=== PATIENT | female | born 1935 | race Caucasian/White ===

== ENCOUNTER → 2018-07-25 | Day surgery (SDC) | payer MEDICARE ==
[2018-07-21 15:04] LABS: BASOPHILS # (AUTO) 0.1 (0.0-0.1); BASOPHILS % 0.7 % (0.0-1.0); EOSINOPHILS # (AUTO) 0.2 (0.0-0.4); EOSINOPHILS % 2.1 % (0.0-6.0); HEMATOCRIT 35.5 % (34.2-44.1); HEMOGLOBIN 11.9 g/dL (12.0-16.0); LYMPHOCYTES % 33.9 % (18.0-39.1); MEAN CORPUSCULAR HEMOGLOBIN 28.7 pg (28-32); MEAN CORPUSCULAR HGB CONC 33.5 g/dL (31-35); MEAN CORPUSCULAR VOLUME 85.5 fL (81-99); MONOCYTES # (AUTO) 0.9 (0.2-0.8); MONOCYTES % 9.6 % (4.4-11.3); NEUTROPHILS # (AUTO) 4.8 (2.1-6.9); NEUTROPHILS % 53.4 % (38.7-80.0); RED BLOOD COUNT 4.15 x10e6/uL (3.6-5.1); RED CELL DISTRIBUTION WIDTH 15.1 % (11.7-14.4)
[2018-07-21 15:08] LABS: PLATELET COUNT 99 x10e3/uL (140-360)
--- NOTE | 2018-07-21 15:25 | Diagnostic Imaging Report ---
EXAMINATION: CHEST 2 VIEWS INDICATION: Pre-admit COMPARISON: None FINDINGS: TUBES and LINES: None. LUNGS: Lungs are well inflated. Lungs are clear. There is no evidence of pneumonia or pulmonary edema. PLEURA: No pleural effusion or pneumothorax. HEART AND MEDIASTINUM: The cardiomediastinal silhouette is unremarkable. There are atherosclerotic calcifications within the aorta. BONES AND SOFT TISSUES: No acute osseous lesion. Soft tissues are unremarkable. UPPER ABDOMEN: No free air under the diaphragm. IMPRESSION: No acute radiographic abnormality. Signed by: Dr. Roxanna Kunz MD on 07/21/2018 3:21 PM
[2018-07-21 15:28] LABS: ANION GAP 16.4 mmol/L (8-16); CALCIUM 9.8 mg/dL (8.4-10.2); CREATININE, SERUM 1.33 mg/dL (0.57-1.11); POTASSIUM 3.4 mmol/L (3.5-5.1)
[~2018-07-25] MED LIST: BACITRACIN 50,000 UNIT VIAL ONE; BUPIVACAINE HCL 0.5% INJ 30 ML VIAL INJ ONE; BYSTOLIC10 MG PO; CYCLOBENZAPRINE5 MG; EPHEDRINE SULFATE INJ 50 MG/10 ML SYR ONE; FENTANYL CITRATE/PF 100MCG/2 ML INJ ONE; HYDRALAZINE HCL25 MG PO; HYDROCHLOROTHIA25 MG; INSULIN 70/30 SQ; LASIX40 MG PO; LOSARTAN POTAS100 MG PO; MELATONIN3 MG PO; MOBIC15 MG; MUPIROCIN22 GM TOP; NEOSTIGMINE 1 MG/ML 10ML VIAL ONE; POTASSIUM CHLO10 ME1 PO; SEVOFLURANE INHAL SOLN 250 ML PEN BTL ONE; TYLENOL; VITAMIN D1000 UNI1 PO; ZYRTEC10 M3
[2018-07-25 12:30] VITALS: BP 154/67
--- NOTE | 2018-07-25 16:10 | Operative Report ---
DATE OF PROCEDURE: July 25, 2018 SCRATCHER TENDER: None. PREOPERATIVE DIAGNOSES 1. Ulcer, chronic, left foot. 2. Rigid hammer toe, left second. POSTOPERATIVE DIAGNOSES 1. Ulcer, chronic, left foot. 2. Rigid hammer toe, left second. OPERATION PERFORMED: 1. Arthrodesis proximal interphalangeal joint, left second. 2. Tenotomy and capsulotomy, metatarsophalangeal joint, left second. PATHOLOGY: None. ANESTHESIA: General anesthetic. HEMOSTASIS: None. ESTIMATED BLOOD LOSS: Less than 10 mL. MATERIALS: Smart Toe from [employer]. Reference #: [id number], Lot# [id number]. PROCEDURE IN DETAIL: Under mild sedation, patient was brought to the operating room and placed on the operating table in the supine position. Following IV sedation, anesthesia was obtained with a general anesthetic. At this point, the foot was scrubbed, prepped, and draped in usual aseptic manner. It was then lowered to the table. Arthrodesis, proximal interphalangeal joint: Attention was then directed to the dorsal aspect of the left foot where a linear incision was made overlying the proximal interphalangeal joint. The incision was deepened via sharp and blunt dissection with care taken to retract and cauterize neurovascular structures as necessary. It was deepened down to the level of the tendon. The extensor tendon was then tenotomized. The retraction of the proximal interphalangeal joint was released. At this point, a Smart Toe 6 cm, no angle, was inserted into the arthrodesis of the joint. There was noted to be adequate alignment clinically with the use of intraoperative fluoroscopy. Attention was then directed to the metatarsophalangeal joint where a tenotomy and capsulotomy of the metatarsophalangeal joint was performed since the toe was contracted after the proximal interphalangeal joint, and was continued to have some contracture after the proximal interphalangeal joint arthrodesis. The flexor tendon was also released at the distal interphalangeal joint. At this point, there was noted to be adequate alignment clinically with intraoperative fluoroscopy. All incisions were then flushed with copious amounts of normal sterile saline solution. The incisions were then closed, closing with 4-0 Vicryl and 4-0 nylon. Clean dressing was applied consisting of Adaptic, 4 x 4's, Kerlix and an Elvin bandage. The patient tolerated the procedure and the anesthesia well without complications, and was transported to the recovery room with vital signs stable and vascular status intact to both feet. The patient will be discharged home when she meets criteria. They were given instructions to be partial weightbearing, to use a fracture boot or postop shoe and a walker, to follow up with me in the office and to call the office if any questions, concerns or any problems arise. Job#: [id number]
--- OUTSIDE RECORDS SUMMARY | 2018-08-01 12:16 | XMS REPORT | Summary of Care ---
Author Author [facility] Address Unknown Phone Unavailable Encounter HQ Darrin_navarro(FIN) [id number] Date(s): 10/20/16 - 11/18/16 [facility] Discharge Disposition: Home or Self Care Attending Physician: Marissa Cooper DO Vital Signs No data available for this section Problem List Condition Effective Dates Status Health Status Informant Bradycardia(Confirme Active d) Diabetes mellitus Active type 2(Confirmed) HTN - Active Hypertension(Confirm ed) IBS - Irritable Active bowel syndrome(Confirmed) Peripheral Active neuropathy(Confirmed ) Allergies, Adverse Reactions, Alerts Substance Reaction Severity Status Aldactone Active atenolol Rash Active bacitracin ophthalmic Active hydrochlorothiazide upper body rash Active iodine Active Ketek Active lisinopril Rash Active Lotemax 0.5% ophthalmic Active suspension Lyrica Active macrolide antibiotics Active metronidazole Itching Active Muscle pain Dry mouth Shortness of breath Tim-Dex ophthalmic Active solution Novocain Active penicillins Rash Active telithromycin Active Tequin Active tetracyclines Rash Active Swelling Ultram Active Zaditor 0.025% ophthalmic Active solution Medications No data available for this section Results No data available for this section Immunizations Given and Recorded Vaccine Date Status Refusal Reason influenza virus vaccine, inactivated 11/20/08 Given Procedures No data available for this section Social History Social History Type Response Smoking Status Never smoker; Exposure to Tobacco Smoke None; Cigarette Smoking Last 365 Days No; Reg Smoking Cessation Counseling No Assessment and Plan No data available for this section
--- OUTSIDE RECORDS SUMMARY | 2018-08-01 12:16 | XMS REPORT | Summary of Care ---
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 Start Date: 01/22/14 Stop Date: 01/22/14 Status: Completed Medications Administered During Your Visit No data available for this section Immunizations Vaccine Date Refusal Reason influenza virus vaccine, inactivated 11/20/08
--- OUTSIDE RECORDS SUMMARY | 2018-08-01 12:16 | XMS REPORT | Summary of Care ---
Author Author [facility] Organization [facility] Address Unknown Phone Unavailable Encounter HQ Darrin_navarro(FIN) [id number] Date(s): 02/27/16 - 02/27/16 [facility] [address] [place] [address]- Discharge Disposition: Home Attending Physician: Gibson Trinidad MD Referring Physician: Gibson Trinidad MD Vital Signs No data available for this [...] Refusal Reason influenza virus vaccine, inactivated 11/20/08 Procedures No data available for this section Social History No data available for this section Assessment and Plan No data available for this section
--- OUTSIDE RECORDS SUMMARY | 2018-08-01 12:16 | XMS REPORT | Summary of Care ---
Author Author [facility] Organization [facility] Address Unknown Phone Unavailable Encounter HQ Darrin_navarro(FIN) [id number] Date(s): 10/22/16 - 10/22/16 [facility] [address] [place] [address]- [phone] Discharge Disposition: Home or Self Care Attending Physician: aMrissa Cooper DO Referring Physician: Marissa Cooper DO Vital Signs No [...]
--- OUTSIDE RECORDS SUMMARY | 2018-08-01 12:16 | XMS REPORT | Summary of Care ---
Author Author [facility] Organization [facility] Address Unknown Phone Unavailable Encounter HQ Ernestina(TINA) [id number] Date(s): 10/23/16 - 10/23/16 [facility] [address] [place] [address]- [phone] Discharge Diagnosis: Chronic hypertension Discharge Disposition: Home or Self Care Attending Physician: Zackery Leon MD Vital Signs 1 2 3 Most recent to oldest [Reference Range]: 167.64 cm (10/23/16 4:04 PM) Height 98.1 DegF (10/23/16 8:15 PM) 98.1 DegF (10/23/16 4:04 PM) Temperature Oral [96.4-99.1 DegF] 166/66 mmHg *HI* (10/23/16 8:15 PM) 160/50 mmHg *HI* (10/23/16 6:53 PM) 183/66 mmHg *HI* (10/23/16 4:40 PM) Blood Pressure [90-140/60-90 mmHg] 14 BRMIN (10/23/16 8:15 PM) 18 BRMIN (10/23/16 4:39 PM) 75 BRMIN *HI* (10/23/16 4:04 PM) Respiratory Rate [14-20 BRMIN] 75 bpm (10/23/16 4:39 PM) 18 bpm *LOW* (10/23/16 4:04 PM) Peripheral Pulse Rate [60-100 bpm] 90.909 kg (10/23/16 4:04 PM) Weight 32.35 m2 (10/23/16 4:04 PM) Body Mass Index Problem List Condition Effective Dates Status Health [...] Active Zaditor 0.025% ophthalmic Active solution Medications Saline Flush 0.9% 10 mL, Route: IVP, Drug Form: INJ, Dosing Weight 90.909, kg, PRN, PRN Line Flush , Start date: 10/23/16 16:39:00 DIRECTOR EMERGENCY SERVICES, Duration: 30 day, Stop date: 11/22/16 16:38 :00 DIRECTOR EMERGENCY SERVICES Notes: (Same as: BD Posiflush) Start Date: 10/23/16 Stop Date: 10/23/16 Status: Discontinued Results ELECTROLYTES Most recent to 1 oldest [Reference Range]: Sodium Lvl [135-145 133 mEq/L mEq/L] *LOW* (10/23/16 4:57 PM) Potassium Lvl 3.8 mEq/L [3.5-5.1 mEq/L] (10/23/16 4:57 PM) Chloride Lvl [95-109 94 mEq/L mEq/L] *LOW* (10/23/16 4:57 PM) CO2 [24-32 mEq/L] 31 mEq/L (10/23/16 4:57 PM) AGAP [10.0-20.0 11.8 mEq/L mEq/L] (10/23/16 4:57 PM) CHEM PANEL Most recent to 1 oldest [Reference Range]: Creatinine Lvl 1.20 mg/dL [0.50-1.40 mg/dL] (10/23/16 4:57 PM) eGFR 43 mL/min/1.73m2 1 *NA* (10/23/16 4:57 PM) BUN [7-22 mg/dL] 20 mg/dL (10/23/16 4:57 PM) B/C Ratio [6-25] 17 (10/23/16 4:57 PM) Glucose Lvl [70-99 271 mg/dL mg/dL] *HI* (10/23/16 4:57 PM) Total Protein 7.1 g/dL [6.4-8.4 g/dL] (10/23/16 4:57 PM) Albumin Lvl [3.5-5.0 3.2 g/dL g/dL] *LOW* (10/23/16 4:57 PM) Globulin [2.7-4.2 3.9 g/dL g/dL] (10/23/16 4:57 PM) A/G Ratio [0.7-1.6] 0.8 (10/23/16 4:57 PM) Calcium Lvl 8.5 mg/dL [8.5-10.5 mg/dL] (10/23/16 4:57 PM) ALT [0-65 unit/L] 34 unit/L (10/23/16 4:57 PM) AST [0-37 unit/L] 35 unit/L (10/23/16 4:57 PM) Alk Phos [39-136 126 unit/L unit/L] (10/23/16 4:57 PM) Bili Total [0.2-1.3 0.7 mg/dL mg/dL] (10/23/16 4:57 PM) 1Result Comment: The eGFR is calculated using the CKD-EPI formula. In most young, healthy individuals the eGFR will be >90 mL/min/1.73m2. The eGFR declines with age. An eGFR of 60-89 may be normal in some populations, particularly the elderly, for whom the CKD-EPI formula has not been extensively validated. Use of the eGFR is not recommended in the following populations: Individuals with unstable creatinine concentrations, including patients and those with serious co-morbid conditions. Patients with extremes in muscle mass or diet. The data above are obtained from the National Kidney Disease Education Program ( NKDEP) which additionally recommends that when the eGFR is used in patients with extremes of body mass index for purposes of drug dosing, the eGFR should be mul tiplied by the estimated BMI. CARDIAC ENZYMES Most recent to 1 oldest [Reference Range]: Total CK [12-191 131 unit/L unit/L] (10/23/16 4:57 PM) CK MB [0.5-3.6 2.6 ng/mL ng/mL] (10/23/16 4:57 PM) CK MB Index 2.0 [0.0-2.5] (10/23/16 4:57 PM) Troponin-I <0.02 ng/mL [0.00-0.40 ng/mL] (10/23/16 4:57 PM) URINE AND STOOL Most recent to 1 oldest [Reference Range]: UA Turbidity [Clear] Clear (10/23/16 4:57 PM) UA Color Ltyellow *NA* (10/23/16 4:57 PM) UA pH [5.0-8.0] 7.0 (10/23/16 4:57 PM) UA Spec Grav 1.008 [<=1.030] (10/23/16 4:57 PM) UA Glucose [Negative 500 mg/dL mg/dL] *ABN* (10/23/16 4:57 PM) UA Blood [Negative] Negative (10/23/16 4:57 PM) UA Ketones [Negative Negative mg/dL mg/dL] *NA* (10/23/16 4:57 PM) UA Protein [Negative Negative mg/dL mg/dL] (10/23/16 4:57 PM) UA Urobilinogen <=1.0 mg/dL [0.1-1.0 mg/dL] *NA* (10/23/16 4:57 PM) UA Bili [Negative] Negative *NA* (10/23/16 4:57 PM) UA Leuk Est Trace [Negative] *ABN* (10/23/16 4:57 PM) UA Nitrite Negative [Negative] (10/23/16 4:57 PM) UA WBC [0-5 /HPF] 6 /HPF *HI* (10/23/16 4:57 PM) UA RBC [0-2 /HPF] <1 /HPF (10/23/16 4:57 PM) UA Bacteria [None Few /HPF Seen /HPF] *NA* (10/23/16 4:57 PM) UA Sq Epi [Few /LPF] Occasional /LPF *NA* (10/23/16 4:57 PM) HEMATOLOGY Most recent to 1 oldest [Reference Range]: WBC [3.7-10.4 K/CMM] 4.6 K/CMM (10/23/16 4:57 PM) RBC [4.20-5.40 3.83 M/CMM M/CMM] *LOW* (10/23/16 4:57 PM) Hgb [12.0-16.0 g/dL] 11.4 g/dL *LOW* (10/23/16 4:57 PM) Hct [36.0-48.0 %] 33.1 % *LOW* (10/23/16 4:57 PM) MCV [80.0-98.0 fL] 86.2 fL (10/23/16 4:57 PM) MCH [27.0-31.0 pg] 29.6 pg (10/23/16 4:57 PM) MCHC [32.0-36.0 34.4 g/dL g/dL] (10/23/16 4:57 PM) RDW [11.5-14.5 %] 15.1 % *HI* (10/23/16 4:57 PM) Platelet [133-450 97 K/CMM K/CMM] *LOW* (10/23/16 4:57 PM) MPV [7.4-10.4 fL] 7.8 fL (10/23/16 4:57 PM) Segs [45.0-75.0 %] 53.4 % (10/23/16 4:57 PM) Lymphocytes 31.2 % [20.0-40.0 %] (10/23/16 4:57 PM) Monocytes [2.0-12.0 9.9 % %] (10/23/16 4:57 PM) Eosinophils [0.0-4.0 4.3 % %] *HI* (10/23/16 4:57 PM) Basophils [0.0-1.0 1.2 % %] *HI* (10/23/16 4:57 PM) Segs-Bands # 2.5 K/CMM [1.5-8.1 K/CMM] (10/23/16 4:57 PM) Lymphocytes # 1.4 K/CMM [1.0-5.5 K/CMM] (10/23/16 4:57 PM) Monocytes # [0.0-0.8 0.5 K/CMM K/CMM] (10/23/16 4:57 PM) Eosinophils # 0.2 K/CMM [0.0-0.5 K/CMM] (10/23/16 4:57 PM) Basophils # [0.0-0.2 0.1 K/CMM K/CMM] (10/23/16 4:57 PM) PT [12.0-14.7 14.3 seconds seconds] (10/23/16 4:57 PM) INR [0.85-1.17] 1.09 (10/23/16 4:57 PM) PTT [22.9-35.8 36.8 seconds seconds] *HI* (10/23/16 4:57 PM) Immunizations Given and Recorded Vaccine Date Status [...]
--- OUTSIDE RECORDS SUMMARY | 2018-08-01 12:16 | XMS REPORT | Continuity of Care Document ---
Author Author [facility] Interface Address Unknown Phone Unavailable Problems Problem Status Onset Date Classification Date Reported Comments Source DX: N18.3=CHRONIC KIDNEY DISEASE, STAGE Active 02/02/2018 [facility] Discharge Diagnosis: Chronic hypertension 10/23/2016 10/26/2016 [facility] HIGH BP Active 10/23/2016 [facility] RT HIP PAIN Active 10/17/2016 [facility] M48.06 SPINAL STENOSIS, LUMBAR REGION M2 Active 10/08/2016 [facility] M79.7 / M48.06/ M25.551 Active 09/08/2016 [facility] SCREENING MAMMO Active 02/17/2016 [facility] 729.2=ACUTE NEURITIS/389.10=CONGENITAL S Active 01/11/2014 [facility] Bradycardia Active Problem 02/06/2018 [facility] Diabetes mellitus type 2 Active Problem 02/06/2018 [facility] HTN - Hypertension Active Problem 02/06/2018 [facility] IBS - Irritable bowel syndrome Active Problem 02/06/2018 [facility] Peripheral neuropathy Active Problem 02/06/2018 [facility] NEURALGIA/NEURITIS NOS Active [facility] SENSORNEUR HEAR LOSS NOS Active [facility] SENSONEUR HEAR LOSS ASYM Active [facility] OTALGIA NOS Active [facility] ENCNTR SCREEN MAMMOGRAM FOR MALIGNANT NE Active [facility] XRAYS Active [facility] FIBROMYALGIA Active [facility] SPINAL STENOSIS, LUMBAR REGION Active [facility] OBESITY, UNSPECIFIED Active [facility] PAIN IN RIGHT HIP Active [facility] DISORDER OF BONE, UNSPECIFIED Active [facility] CHRONIC KIDNEY DISEASE, STAGE 3 (MODERAT Active [facility] Medications Medication Details Route Status Patient Instructions Ordering Provider Order Date Source Saline Flush 0.9% 10 mL, Route: IVP, Drug Form: INJ, Dosing Weight 90.909, kg, PRN, PRN Line Flush, Start date: 10/23/16 16:39:00 [employer] PROFESSOR, Duration: 30 day, Stop date: 11/22/16 16:38:00 CSTNotes: (Same as: BD Posiflush) Inactive 10/23/2016 [facility] Omniscan 2,296 mg, 8 mL, Route: IV, Drug form: INJ, ONCE, Start date: 01/22/14 9:57:00, Stop date: 01/22/14 9:57:00Notes: (Same as: Omniscan). Inactive 01/22/2014 [facility] Allergies, Adverse Reactions, Alerts Substance Category Reaction Severity Reaction type Status Date Reported Comments Source Aldactone Assertion Drug allergy Active [facility] atenolol Assertion Rash Drug allergy Active [facility] bacitracin ophthalmic Assertion Drug allergy Active [facility] hydrochlorothiazide Assertion upper body rash Drug allergy Active [facility] iodine Assertion Drug allergy Active [facility] Ketek Assertion Drug allergy Active [facility] lisinopril Assertion Rash Drug allergy Active [facility] Lotemax 0.5% ophthalmic suspension Assertion Drug allergy Active [facility] Lyrica Assertion Drug allergy Active [facility] macrolide antibiotics Assertion Drug allergy Active [facility] metronidazole Assertion Shortness of breath, Dry mouth, Muscle pain, Itching Drug allergy Active [facility] Tim-Dex ophthalmic solution Assertion Drug allergy Active [facility] Novocain Assertion Drug allergy Active [facility] penicillins Assertion Rash Drug allergy Active [facility] telithromycin Assertion Drug allergy Active [facility] Tequin Assertion Drug allergy Active [facility] tetracyclines Assertion Swelling, Rash Drug allergy Active [facility] Ultram Assertion Drug allergy Active [facility] Zaditor 0.025% ophthalmic solution Assertion Drug allergy Active [facility] Immunizations Immunization Date Given Site Status Last Updated Comments Source influenza virus vaccine, inactivated 11/20/2008 Right arm completed [facility] [place] Results Order Name Results Value Reference Range Date Interpretation Comments Source Bladder US Bladder US Patient Name: NARENDRA ROBB : 1935; Age: 82 years Female MR: [id number] Study: Bladder US 02/03/2018 10:25 AM CDT Clinical Indication: chronic kidney disease. pre and post void residual - chronic kidney disease. COMPARISON: None FINDINGS: The bladder lumen is normal. The prevoid bladder volume is 195 cc. The post void bladder volume is 4 cc. IMPRESSION: Normal bladder ultrasound with normal pre and post void residuals. SL: [id number] 02/03/2018 - - Read by: Kp Ortez MD Dictated Date/time: 02/03/18 14:49 Electronically Signed by: Kp Ortez MD 02/03/18 14:49 FINAL REPORT [facility] Retroperitoneal Complete US Retroperitoneal Complete US Retroperitoneal Complete US 82 years /o Female Clinical Indication: chronic kidney disease - chronic kidney disease; Comparison: 04/29/2010 liver ultrasound TECHNIQUE: Multiple longitudinal and transverse real time sonographic images of the kidneys and urinary bladder are obtained. FINDINGS: KIDNEY: The right kidney measures 9.4 x 5.3 x 5.0 cm. The left kidney measures 10.1 x 4.3 x 4.5 cm. The kidneys are normal in size, shape, contour, and position. 2 small simple cysts arise in the upper pole of the left kidney measuring 1.0 and 1.6 cm in diameter. The renal parenchymal echogenicity is within normal limits. There is no hydronephrosis, nephrolithiasis, or abnormal perinephric collections. BLADDER: Scanning through the pelvis reveals the bladder to be partially distended with anechoic urine. AORTA, ILIAC ARTERIES AND IVC: Distal aorta and common iliac vessels not well seen on this exam due to overlying bowel gas. IVC patent. Proximal aorta within normal limits. ASCITES: No ascites noted. IMPRESSION: 1. Small cysts in the upper pole on the left kidney appear to be simple cysts of doubtful clinical significance. 2. Otherwise negative retroperitoneal ultrasound. SL: [id number] 02/03/2018 - - Read by: Bernardo Olivares MD Dictated Date/time: 02/03/18 14:48 Electronically Signed by: Bernardo Olivares MD 02/03/18 14:50 FINAL REPORT [facility] CARDIAC ENZYMES CK MB Index 2.0 0.0 - 2.5 10/23/2016 [facility] CARDIAC ENZYMES Troponin-I null 0.00 - 0.40 10/23/2016 [facility] CARDIAC ENZYMES CK MB 2.6 ng/mL 0.5 - 3.6 10/23/2016 [facility] CARDIAC ENZYMES Total CK 131 unit/L 12 - 191 10/23/2016 [facility] CHEM PANEL eGFR 43 mL/min/1.73m2 10/23/2016 Result Comment: The eGFR is calculated using the [...] from the National Kidney Disease Education Program (NKDEP) which additionally recommends that when the eGFR is used in patients with extremes of body mass index for purposes of drug dosing, the eGFR should be multiplied by the estimated BMI. [facility] CHEM PANEL Alk Phos 126 unit/L 39 - 136 10/23/2016 [facility]M PANEL AGAP 11.8 meq/L 10.0 - 20.0 10/23/2016 [facility]M PANEL Bili Total 0.7 mg/dL 0.2 - 1.3 10/23/2016 [facility] CHEM PANEL Albumin Lvl 3.2 g/dL 3.5 - 5.0 10/23/2016 [facility] CHEM PANEL ALT 34 unit/L 0 - 65 10/23/2016 [facility]M PANEL AST 35 unit/L 0 - 37 10/23/2016 [facility]M PANEL CO2 31 meq/L 24 - 32 10/23/2016 [facility]M PANEL Calcium Lvl 8.5 mg/dL 8.5 - 10.5 10/23/2016 [facility] PAN[facility] Total Protein 7.1 g/dL 6.4 - 8.4 10/23/2016 [facility] PAN[facility] Potassium Lvl 3.8 meq/L 3.5 - 5.1 10/23/2016 [facility] PAN[facility] Chloride Lvl 94 meq/L 95 - 109 10/23/2016 [facility] A/G Ratio 0.8 0.7 - 1.6 10/23/2016 [facility] B/C Ratio 17 6 - 25 10/23/2016 [facility] Globulin 3.9 g/dL 2.7 - 4.2 10/23/2016 [facility] PAN[facility] BUN 20 mg/dL 7 - 22 10/23/2016 [facility] PAN[facility] Creatinine Lvl 1.20 mg/dL 0.50 - 1.40 10/23/2016 [facility] PAN[facility] Glucose Lvl 271 mg/dL 70 - 99 10/23/2016 [facility] PAN[facility] Sodium Lvl 133 meq/L 135 - 145 10/23/2016 [facility] Monocytes 9.9 % 2.0 - 12.0 10/23/2016 [facility] HEMATOLOGY Segs 53.4 % 45.0 - 75.0 10/23/2016 [facility] HEMATOLOGY Lymphocytes 31.2 % 20.0 - 40.0 10/23/2016 [facility] HEMATOLOGY Basophils # 0.1 K/CMM 0.0 - 0.2 10/23/2016 [facility] HEMATOLOGY Monocytes # 0.5 K/CMM 0.0 - 0.8 10/23/2016 [facility] HEMATOLOGY Eosinophils # 0.2 K/CMM 0.0 - 0.5 10/23/2016 [facility] HEMATOLOGY Segs-Bands # 2.5 K/CMM 1.5 - 8.1 10/23/2016 [facility] Lymphocytes # 1.4 K/CMM 1.0 - 5.5 10/23/2016 [facility] Eosinophils 4.3 % 0.0 - 4.0 10/23/2016 [facility] Basophils 1.2 % 0.0 - 1.0 10/23/2016 [facility] PTT 36.8 s 22.9 - 35.8 10/23/2016 [facility] INR 1.09 0.85 - 1.17 10/23/2016 [facility] PT 14.3 s 12.0 - 14.7 10/23/2016 [facility] Platelet 97 K/CMM 133 - 450 10/23/2016 [facility] MPV 7.8 fL 7.4 - 10.4 10/23/2016 [facility] MCHC 34.4 g/dL 32.0 - 36.0 10/23/2016 [facility] RDW 15.1 % 11.5 - 14.5 10/23/2016 [facility] MCH 29.6 pg 27.0 - 31.0 10/23/2016 [facility] MCV 86.2 fL 80.0 - 98.0 10/23/2016 [facility] Hgb 11.4 g/dL 12.0 - 16.0 10/23/2016 [facility] Hct 33.1 % 36.0 - 48.0 10/23/2016 [facility] WBC 4.6 K/CMM 3.7 - 10.4 10/23/2016 [facility] RBC 3.83 M/CMM 4.20 - 5.40 10/23/2016 [facility] URINE AND STOOL UA Urobilinogen <=1.0 mg/dL 0.1 - 1.0 10/23/2016 [facility] URINE AND STOOL UA Bacteria Few /HPF None Seen /HPF 10/23/2016 [facility] URINE AND STOOL UA WBC 6 /HPF 0 - 5 10/23/2016 [facility] URINE AND STOOL UA Sq Epi Occasional /LPF Few /LPF 10/23/2016 [facility] URINE AND STOOL UA RBC null 0 - 2 10/23/2016 [facility] URINE AND STOOL UA Color Ltyellow 10/23/2016 [facility] URINE AND STOOL UA Leuk Est Trace *ABN* (10/23/16 4:57 PM) Negative 10/23/2016 [facility] URINE AND STOOL UA Blood Negative (10/23/16 4:57 PM) Negative 10/23/2016 [facility] URINE AND STOOL UA Bili Negative *NA* (10/23/16 4:57 PM) Negative 10/23/2016 [facility] URINE AND STOOL UA Nitrite Negative (10/23/16 4:57 PM) Negative 10/23/2016 [facility] URINE AND STOOL UA Ketones Negative mg/dL Negative mg/dL 10/23/2016 [facility] URINE AND STOOL UA Glucose 500 mg/dL Negative mg/dL 10/23/2016 [facility] URINE AND STOOL UA Protein Negative mg/dL Negative mg/dL 10/23/2016 [facility] URINE AND STOOL UA pH 7.0 5.0 - 8.0 10/23/2016 [facility] URINE AND STOOL UA Spec Grav 1.008 <=1.030 10/23/2016 [facility] URINE AND STOOL UA Turbidity Clear (10/23/16 4:57 PM) Clear 10/23/2016 [facility] Chest 1view DX Chest 1view DX Study: Frontal chest x-ray compared to 10/01/2013 History: Chest pain Comments: The trachea is midline. The cardiomediastinal silhouette is normal in size. No pneumonia. No pleural effusions or pneumothorax. Impression: No acute cardiopulmonary disease. 10/23/2016 - - Read by: Kandi Smalls MD Dictated Date/time: 10/23/16 18:16 Electronically Signed by: Kandi Smalls MD 10/23/16 18:18 FINAL REPORT [facility] Brain wo contrast CT Brain wo contrast CT Addendum: Images reviewed. Agree. Study: CT head without contrast. History: Weakness Comments: CT head was obtained from the vertex to the skull base utilizing multiple axial images without intravenous contrast. Total exam DLP is 981 mgy-cm. No intracranial hemorrhage, mass effect or midline shift. Normal duenas-white matter differentiation. Intracranial ventricles and subarachnoid spaces are within normal limits. No depressed skull bone fractures. Visualized paranasal sinuses show no fluid levels to suggest acute sinusitis. Impression: No intracranial hemorrhage, mass effect or midline shift. 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 COMPARISON: None FINDINGS: The axial lumbar bone mineral density is 107% of the expected age matched bone mass with a T-score 0.7. Axial lumbar average BMD is 1.13 g/cm2. The left femoral neck bone mineral density is 98% of the expected age matched bone mass with a T-score of -0.2. Left femoral neck BMD is 0.83 g/cm2. The total femoral BMD is 1.22 g/cm2. IMPRESSION: 1. Normal bone mineral density of the lumbar spine. 2. Normal bone mineral density of the left femoral neck. The World Health Organization has established that OSTEOPOROSIS occurs at -2.5 or more standard deviations (SD) below peak bone mass. OSTEOPENIA (low bone mass) occurs at -1.0 standard deviations to -2.5 standard deviations below peak bone mass. 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 Minimal degenerative changes of the right hip. No gross soft tissue abnormalities. IMPRESSION: No acute abnormalities. SL: [id number] 09/08/2016 - - Read by: Rose Calloway MD Dictated Date/time: 09/08/16 10:40 Electronically Signed by: Rose Calloway MD 09/08/16 10:41 FINAL REPORT [facility] Digital Mammo Screening Angelo MA Digital Mammo Screening Angelo MA - DIGITAL MAMMO SCREENING ANGELO MA BILATERAL DIGITAL SCREENING MAMMOGRAM WITH CAD: 02/27/2016 CLINICAL: Routine. Current study was evaluated with a Computer Aided Detection (CAD) system. Comparison is made to exams dated: 09/21/2012 mammogram, 08/02/2011 mammogram, 09/04/2009 mammogram and 07/11/2009 mammogram - [facility]. The tissue of both breasts is almost entirely fat. There are benign vascular calcifications and calcifications in both breasts. There also are benign densities in both breasts. No significant masses, calcifications, or other findings are seen in either breast. There has been no significant interval change. IMPRESSION: BENIGN There is no mammographic evidence of malignancy. A 1 year screening mammogram is recommended. David monzon/penrad:03/01/2016 10:46:39 Practicing Urologist: Kika Kearns, [facility] This exam was dictated and interpreted by [id number] for [facility]. letter sent: Normal exam Mammogram BI-RADS: 2 Benign 02/27/2016 - - Read by: David Vela MD Dictated Date/time: 03/01/16 10:46 Electronically Signed by: David Vela MD 03/01/16 10:46 FINAL REPORT [facility] Brain/IAC's w/wo contrast MRI Brain/IAC's w/wo contrast MRI MRI BRAIN AND IAC WITH AND WITHOUT CONTRAST INDICATION: Sensorineural hearing loss COMPARISON: CT brain 02/09/2012 DISCUSSION: Image detail is degraded by motion artifacts. BRAIN: There are age-appropriate generalized involutional changes of the brain. The white matter is normal in signal. There is no evidence of acute vascular insults, space occupying lesions, hemorrhage, hydrocephalus, midline shift, or extra-axial collections. No cortical-based, suprasellar, craniocervical, enhancing, or bone marrow abnormalities are seen. IACs: There are no abnormalities in the internal auditory canals, cerebellopontine angle cisterns, or in the brainstem. The labyrinthine structures are grossly unremarkable. IMPRESSION: 1. No intracranial abnormalities are visualized. 2. No abnormalities of the internal auditory canals are identified. SL: 16 01/22/2014 - - Read by: Anders Oliveros Dictated Date/time: 01/22/14 16:23 Electronically Signed by: Anders Oliveros MD 01/22/14 16:30 FINAL REPORT [facility] Vital Signs Vital Sign Value Date Comments Source Systolic (mm Hg) 166 10/24/2016 [facility] Diastolic (mm Hg) 66 10/24/2016 [facility] Respitory Rate 14 10/24/2016 [facility] Temperature Oral (F) 98.1 F 10/24/2016 [facility] Systolic (mm Hg) 160 10/24/2016 [facility] Diastolic (mm Hg) 50 10/24/2016 [facility] Systolic (mm Hg) 183 10/23/2016 [facility] Diastolic (mm Hg) 66 10/23/2016 [facility] Heart Rate 75 10/23/2016 [facility] Respitory Rate 18 10/23/2016 [facility] Weight 90.909 10/23/2016 [facility] BMI Calculated 32.35 10/23/2016 [facility] Height 167.64 cm 10/23/2016 [facility] Temperature Oral (F) 98.1 F 10/23/2016 [facility] Heart Rate 18 10/23/2016 [facility] Respitory Rate 75 10/23/2016 [facility] Height 167.64 cm 01/22/2014 [facility] Weight 90.909 01/22/2014 [facility] Encounters Location Location Details Encounter Type Encounter Number Reason For Visit Attending Provider ADM Date DC Date Status Source [facility] Outpatient [id number] Denise Salamanca 01/22/2014 01/23/2014 [facility] Outpatient [id number] Gibson Todden 02/27/2016 02/28/2016 [facility] Outpatient [id number] Marissa Cooper 09/08/2016 09/09/2016 [facility] OP Therapy Patients [id number] Marissa Cooper 10/20/2016 11/19/2016 [facility] Outpatient [id number] Marissa Cooper 10/22/2016 10/23/2016 [facility] Emergency [id number] Zackery Leon 10/23/2016 10/24/2016 [facility] Outpatient [id number] Taurus Kay 02/03/2018 02/04/2018 [facility] Procedures Procedure Code Date Perfomer Comments Source
--- OUTSIDE RECORDS SUMMARY | 2018-08-01 12:16 | XMS REPORT | Summary of Care ---
Author Author [facility] Organization [facility] Address Unknown Phone Unavailable Encounter MARTHA Do(TINA) [id number] Date(s): 02/03/18 - 02/03/18 [facility] [address] [place] [address]- Discharge Disposition: Home or Self Care Attending Physician: Taurus aKy MD Referring Physician: Taurus Kay MD Vital Signs No data available for this section Problem List Condition Effective Dates Status Health Status Informant Bradycardia(Confirme Active d) Diabetes mellitus Active type 2(Confirmed) HTN - Active Hypertension(Confirm ed) IBS - Irritable Active bowel syndrome(Confirmed) Peripheral Active neuropathy(Confirmed ) Allergies, Adverse Reactions, Alerts Substance Reaction Severity Status penicillins Rash Active macrolide antibiotics Active tetracyclines Swelling Active Rash atenolol Rash Active metronidazole Shortness of breath Active Dry mouth Muscle pain Itching hydrochlorothiazide upper body rash Active lisinopril Rash Active bacitracin ophthalmic Active Aldactone Active Novocain Active Ultram Active Tequin Active Lotemax 0.5% ophthalmic Active suspension Tim-Dex ophthalmic Active solution Zaditor 0.025% ophthalmic Active solution Ketek Active telithromycin Active Lyrica Active iodine Active Medications No data available for this section Results No data available for this section Immunizations Given and Recorded Vaccine Date Status Refusal Reason influenza virus vaccine, inactivated 11/20/08 Given Procedures No data available for this section Social History Social History Type Response Smoking Status Never smoker; Exposure to Tobacco Smoke None; Cigarette Smoking Last 365 Days No; Reg Smoking Cessation Counseling No entered on: 10/23/16 Assessment and Plan No data available for this section
--- OUTSIDE RECORDS SUMMARY | 2018-08-01 12:16 | XMS REPORT | Summary of Care ---
Author Author [facility] Organization [facility] Address Unknown Phone Unavailable Encounter HQ Guanakor_navarro(FIN) [id number] Date(s): 09/08/16 - 09/08/16 [facility] [address] [place] [address]- Discharge Disposition: Home or Self Care Attending [...]
--- OUTSIDE RECORDS SUMMARY | 2018-08-01 12:16 | XMS REPORT ---
Author Author 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 Allergies, Adverse Reactions, Alerts This patient has no known allergies or adverse reactions. Medications This patient has no known medications. Results Test Description Test Time Test Comments Text Results Atomic Results Result Comments CHEST 2 VIEWS 2018-07-21 15:19:00 [place] [address] Patient Name: NARENDRA ROBB MR #: [id number] : 1935 Age/Sex: 82/F Req #: [id number] Adm Physician: Ordered by: ASHLEY BHATTI MD Report #: [id number] Location: OR Room/Bed: Procedure: [id number] DX/CHEST 2 VIEWS Exam Date: 07/21/18 Exam Time: 1440 REPORT STATUS: Signed EXAMINATION: CHEST 2 VIEWS INDICATION: Pre-admit COMPARISON: None FINDINGS: TUBES and LINES: None. LUNGS: Lungs are well inflated. Lungs are clear. There is no evidence of pneumonia or pulmonary edema. PLEURA: No pleural effusion or pneumothorax. HEART AND MEDIASTINUM: The cardiomediastinal silhouette is unremarkable. There are atherosclerotic calcifications within the aorta. BONES AND SOFT TISSUES: No acute osseous lesion. Soft tissues are unremarkable. UPPER ABDOMEN: No free air under the diaphragm. IMPRESSION: No acute radiographic abnormality. Signed by: Dr. Balwinder Johnson MD on 07/21/2018 3:21 PM Dictated By: BALWINDER JOHNSON MD 1521 Transcribed By: ARAMIS on 07/21/18 1521 COPY TO: ASHLEY BHATTI MD
== END | disposition home or self-care (01) ==
LOC: OR 08:43
PROVIDERS: ATTEND Podiatrist Foot & Ankle Surgery
DX: M20.42 Other hammer toe(s) (acquired), left foot (principal); L97.529 Non-pressure chronic ulcer of other part of left foot with unspecified severity; J45.909 Unspecified asthma, uncomplicated; I10 Essential (primary) hypertension; E78.5 Hyperlipidemia, unspecified; E11.9 Type 2 diabetes mellitus without complications; K21.9 Gastro-esophageal reflux disease without esophagitis; M54.9 Dorsalgia, unspecified; K58.9 Irritable bowel syndrome, unspecified; K44.9 Diaphragmatic hernia without obstruction or gangrene; F32.9 Major depressive disorder, single episode, unspecified; F41.9 Anxiety disorder, unspecified; Z01.810 Encounter for preprocedural cardiovascular examination; Z01.812 Encounter for preprocedural laboratory examination; Z01.818 Encounter for other preprocedural examination; Z88.6 Allergy status to analgesic agent; Z88.1 Allergy status to other antibiotic agents; Z88.0 Allergy status to penicillin; Z88.8 Allergy status to other drugs, medicaments and biological substances; Z79.4 Long term (current) use of insulin
CPT/HCPCS: 28270; 28285; 36415 ×2; 71046; 80048; 82948; 85025; 93005; C1776; J2710; 76000